=== PATIENT | male | born 2000 | race Caucasian/White ===

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

== ENCOUNTER → 2020-04-02 | Outpatient (CLI) | payer BC | LOC: RAD 15:45 | DX: I07.1 Rheumatic tricuspid insufficiency (principal) ==

== ENCOUNTER → 2024-03-02 | Outpatient (CLI) | payer OTHER | LOC: LAB 06:40 | DX: R63.5 Abnormal weight gain (principal) ==

== ENCOUNTER → 2024-03-14 | Outpatient (CLI) | payer OTHER | LOC: RAD 09:45 | DX: M25.562 Pain in left knee (principal) ==

== ENCOUNTER → 2024-05-12 | Outpatient (CLI) | payer OTHER | LOC: RAD 15:52 | DX: R05.9 Cough, unspecified (principal) ==